=== PATIENT | female | born 1980 | race Caucasian/White ===

== ENCOUNTER → 2020-06-12 08:43 | Outpatient (CLI) | payer MEDICAID, SELFPAY ==
[2020-06-12 08:23] VITALS: BMI 36.6
--- NOTE | 2020-06-12 08:44 | RAD_ITS ---
STUDY: X-RAY - RIGHT KNEE REASON FOR EXAM: Female, 39 years old. Pain. Missed a step TECHNIQUE: 4 view(s) of the knee. COMPARISON: None. FINDINGS: Normal visualized distal femur. Normal visualized proximal tibia and fibula. Normal proximal tibiofibular articulation. There is no demonstrated fracture. There is mild degenerative arthrosis of the medial femorotibial compartment. There is mild degenerative arthrosis of the lateral femorotibial compartment. Status post anterior cruciate ligament repair. There is no demonstrated joint effusion. The soft tissue structures are unremarkable. RAD/Knee 4 or More Views IMPRESSION: Mild arthrosis and postoperative changes. No demonstrated acute osseous injury. Electronically Signed: Geovanni Cortez MD at 11:33 EDT Tel , Service support ,
--- NOTE | 2020-06-12 08:44 | RAD_ITS ---
STUDY: X-RAY - RIGHT WRIST REASON FOR EXAM: Female, 39 years old. pain. Missed a step and fell TECHNIQUE: 3 view(s) of the wrist were obtained. COMPARISON: None. FINDINGS: Normal visualized distal radius and ulna. Normal radiocarpal articulation. Normal distal radioulnar articulation. Normal carpal bones. Normal carpal articulations. Normal carpometacarpal articulation of the thumb. Normal second through fifth carpometacarpal articulations. Normal visualized metacarpal bones. The soft tissue structures are unremarkable. RAD/Wrist min 3 Views IMPRESSION: Normal x-ray examination of the wrist. Electronically Signed: Geovanni Cortez MD at 11:43 EDT Tel , Service support ,
== END ==
PROVIDERS: Visit Provider Orthopaedic Surgery
DX: M25.531 Pain in right wrist (principal); S89.90XA Unspecified injury of unspecified lower leg, initial encounter; W10.9XXA Fall (on) (from) unspecified stairs and steps, initial encounter
CPT/HCPCS: 73110; 73564

== ENCOUNTER → 2020-06-22 13:19 | Outpatient (CLI) | payer MEDICAID, SELFPAY ==
[2020-06-12 08:23] VITALS: BMI 36.6
--- NOTE | 2020-06-22 13:21 | MRI_ITS ---
STUDY: MRI RIGHT KNEE REASON FOR EXAM: Right knee pain and giving out, multiple prior surgeries. TECHNIQUE: Standardized fat and water weighted pulse sequences were obtained in all 3 orthogonal planes. COMPARISON: Radiographs 06/12/2020. FINDINGS: Normal medial meniscus. Normal hyaline cartilage of the medial femorotibial compartment. There are marginal osteophytes of the medial femorotibial compartment. Normal medial femoral condyle and tibial plateau. Normal medial collateral ligamentous complex (MCL). Normal distal semimembranosus, gracilis and semitendinosus tendons. There is a small vertical tear of the anterior horn of the lateral meniscus (proton-density sagittal images 12-14). Normal hyaline cartilage of the lateral femorotibial compartment. There are marginal osteophytes of the lateral femorotibial compartment. Normal lateral femoral condyle and tibial plateau. Normal proximal tibiofibular articulation. Normal lateral collateral (fibular) ligament. Normal popliteus tendon. Normal biceps femoris tendon. The anterior cruciate ligament graft appears intact (series 7 images 10, 11). Normal posterior cruciate ligament (PCL). Normal congruent patellofemoral articulation. There are small chondral tears of the patella near the median ridge (T2 axial image 12). There is low-grade chondromalacia of the femoral trochlea (T2 sagittal images 12, 13). Normal medial and lateral patellar retinaculum. Normal visualized quadriceps tendon. Normal patellar tendon. There is postoperative scarring in Hoffa''s fat pad. There is a very small joint effusion. The soft tissues are unremarkable. There are postoperative changes of the distal femur and proximal tibia from anterior cruciate ligament reconstruction. MRI/Lower Ext Joint Only (Routine) IMPRESSION: Small lateral meniscal tear. Small chondral tears of the patella and low-grade chondromalacia of the femoral trochlea. Intact anterior cruciate ligament graft. Very small joint effusion. Electronically Signed: Bruce Obrien MD at 14:35 EDT Tel , Service support ,
== END ==
PROVIDERS: Referring Provider Orthopaedic Surgery; Visit Provider Orthopaedic Surgery
DX: S89.91XA Unspecified injury of right lower leg, initial encounter (principal); M23.91 Unspecified internal derangement of right knee
CPT/HCPCS: 73721

== ENCOUNTER 2020-07-21 05:32 | Day surgery (SDC) | payer MEDICAID, SELFPAY ==
[2020-07-01 07:55] VITALS: BMI 36.6
--- NOTE | 2020-07-20 15:12 | HP.PCM_ITS ---
History and Physical Date of Admission: 07/21/20 Intake Intake Visit Reasons: Right knee Is patient in pain?: Yes Allergies clarithromycin [From Biaxin] Allergy (Verified 07/01/20 09:47) Anaphylaxis Penicillins Allergy (Verified 07/01/20 09:47) [facility] Medical History (Updated 06/12/20 @ 09:28 by Amina Ponce) Knee injury (Acute) Surgical History (Updated 06/12/20 @ 08:37 by Amina Ponce) History of back surgery (Acute) Social History (Updated 07/01/20 @ 12:[address] Juan Carlos Echavarria DO) household members: children number of children: 1 Smoking Status: Current every day smoker tobacco type: cigarettes Tobacco: How many years used: 20 alcohol intake: never frequency: 3-4 times per week do you feel safe at home: Yes HPI Right knee: Details: Parts of this documentation were recorded by a scribe, this documentation accurately reflects the service provided and the decisions made by me, Dr. Juan Carlos Echavarria DO 07/01/20 0755. MYESHA RAMEY is a 39 year old F here today for a followup on her right knee MRI. Patient states that she continues to have knee pain over her lateral and posterior knee. She states that her knee is giving out on her and she has knee instability. She states that she has knee swelling. She notes that she has catching and popping, which is painful. Patient states that she has no changes with her knee pain since her last visit. Denies numbness, tingling or other associated symptoms. Her MRI is here for review. ROS Musc Reports joint pain, Reports joint swelling, Denies numbness, Denies tingling Skin/Breast Reports system reviewed and no additional complaints, except as docu Neuro Yes system reviewed and no additional complaints, except as docu, No numbness, No tingling Ortho Exam Right Knee Skin/Wound: Yes CDI, No erythema, No ecchymosis, No swelling KNEE: Right Knee Skin/Wound: No erythema, No ecchymosis, No swelling Homans Sign: No Knee ROM: Yes ROM-Extension -20 to 0 (pain), Yes ROM-Flexion 0-140 Stability: NML: Anterior Drawer, NML: Posterior Drawer, NML: Valgus 30 (increased pain), NML: Varus 30, 2+: James (2B) KNEE: No joint effusion. TTP hamstrings, no patellar instability. Non TTP to gastroc muscle.Patient having severe posterior lateral pain with knee flexion and stressing of the lateral meniscus LCL intact Supplemental Info 06/22/2020 MRI right knee: Small anterior horn lateral meniscus tear chondral tears of patella and low grade chondromalacia of trochlea intact graft small joint effusion 06/12/2020 x-ray right knee: Bone tunnels of femur and tibia consistent with prior ACL reconstruction there is spurring of the medial and lateral joint spaces as well as moderate patellofemoral spurring no acute findings on x-ray 06/12/2020 x-ray right wrist: No acute findings Assessment & Plan Problems 1. Tear of lateral meniscus of right knee, current, unspecified tear type, subsequent encounter S83.203O 2. Primary osteoarthritis of right knee M17.11 Plan Educated the patient about the anatomy of the knee and etiology of her pain. Spoke with her about her options- injection vs arthroscopic surgery. Explained she might continue to have pain after surgery due to her arthritis. She wanted to proceed with surgery. Spoke with her about mensicus repair vs meniscectomy. Reviewed the pre-operative plans with the patient. Risks and benefits of the procedure were fully explained, including but not limited to infection, neurovascular injury, continued pain, arthritis, stiffness, need for further surgery, re-injury, DVT, PE, general risks of anesthesia, and loss of limb or life. The patient understands all the risks and does wish to proceed with written consent. Follow up for 2 week post op or sooner if pain, swelling, numbness or associated symptoms, or concerns develop. All questions answered. Patient in agreement of plan. Coding Level of Care Code Off vis,est,level 3 Diagnoses Tear of lateral meniscus of right knee, current, unspecified tear type, subsequent encounter S82.713D ??Encounter type: subsequent encounter ??Meniscus of knee: lateral ??Meniscus tear of knee type: unspecified type ??Tear current or old: current Primary osteoarthritis of right knee M17.11 ??Osteoarthritis type: primary I have re-examined the patient. There are no clinical changes since date of exam Procedure Criteria Procedure Type: Elective COVID Risk Discussion: The surgeon/proceduralist and patient have discussed in detail the risk of exposure to and/or potential harm posed by the COVID-19 virus with having a surgery/procedure at this time versus the risk of delaying the surgery/procedure. It is not possible to know either the risk of delaying the surgery or procedure or chance of getting an infection with perfect accuracy, but a joint decision was made between the patient and the surgeon/proceduralist to proceed at this time with the scheduled surgery/procedure as indicated on the consent form.
[2020-07-21 05:52] VITALS: BP 120/74; PULSE 70; RESP 16; TEMP 36.5; O2SAT 97; BMI 34.6
[2020-07-21] MEDS: Lactated Ringers 1,000 ML 100 ML IV (05:58)
[2020-07-21] MEDS: Epinephrine (1 mg/ml) 1 MG/ML VIAL (07:47)
[2020-07-21] MEDS: Bupiv/Epi 0.5% Mpf 30 ML Vial (07:47)
[2020-07-21] MEDS: morphine PF (epidural) 5 MG/10 ML Vial (08:01)
[2020-07-21] MEDS: MethylPREDNISolone Acetate 80 MG/ML Vial (08:01)
[2020-07-21] MEDS: Bupivacaine Mpf 0.5% 30 ML VIAL (08:01)
--- NOTE | 2020-07-21 08:06 | PCM.DC.ORTHO ---
Discharge Diet: No Restrictions Weight Bearing Status: Weight bearing as tolerated Keep extremity elevated above heart level: Operative Extremity Additional Instructions: Ice and elevate next 72 hours .keep dressing on clean and dry for 48 hours then may remove begin showering daily but do not submerge in tub or pool. After shower may apply Band-Aids . Encourage knee range of motion weightbearing as tolerated, use crutches until confident in knee then may discontinue. No strenuous activity. When not ambulating keep iced and elevated next 72 hours. Call with any questions or concerns. Allergies/Adverse Reactions: Allergies clarithromycin [From Biaxin] Allergy (Verified 07/21/20 05:41) Anaphylaxis Penicillins Allergy (Verified 07/21/20 05:41) Anaphylaxis sob Medications to take at Discharge escitalopram oxalate 5 mg tablet 20 mg PO DAILY 06/12/20 meloxicam 15 mg tablet 15 mg PO DAILY #30 tab 06/15/20 Oxycodone [Oxyir] 5 mg PO Q4H PRN PRN #30 tablet 07/21/20 The following prescriptions were given: Oxycodone [Oxyir] 5 mg PO Q4H PRN PRN #30 tablet PRN Reason: Pain Score 6-10/10 Transmission Status: Sent to [facility] Primary Care Physician: Care Physician,No Primary [Primary Care Provider] - Test Results: Test results from this visit will be discussed in further detail at your follow-up appointment, if applicable. Please Follow Up With: Juan Carlos Echavarria DO When: 2weeks
--- NOTE | 2020-07-21 08:07 | OP.PCM_ITS ---
Report of Operation Date of Procedure: 07/21/20 Description of Surgical Findings:: Preop diagnosis: Right knee anterior horn lateral meniscal tear history of ACL reconstruction DJD Postoperative diagnosis: Right knee anterior horn lateral meniscus posterior horn lateral meniscus tears foreign body metal debris from previous surgery grade 4 cartilage wear patellofemoral joint with large kissing lesion grade II chondromalacia medial and lateral compartments with higher grade 3 ridging of the lateral femoral condyle laxity of ACL graft Procedure: Right knee arthroscopic partial lateral meniscectomy chondroplasty removal of foreign body Anesthesia: General Estimated blood loss: 5 mL Tourniquet time: 21 minutes 300 mmHg Complications: none Indication for procedure: 39-year-old female who has had prior ACL reconstruction many years prior with a total of 3 surgeries on the right knee secondary to infection and screw removal who has had a recent injury to the knee with complaints of instability MRI evidence of small anterior horn lateral meniscus tear and DJD with an intact graft patient wished to proceed with elective arthroscopic surgery to attempt to alleviate her symptoms risk benefits alternatives reviewed including risk of bleeding infection nerve artery tissue damage need for further surgery continued pain and expected postoperative course. Procedure: The patient was met in the preoperative holding area. The operative extremity was identified by both patient and physician and family and marked. Patient was brought back to the operating room on a wheeled cart and transferred to the operating table in the supine position. Anesthesia was started. A well- padded tourniquet was placed on the operative extremity. A lower extremity leg ly was secured to the operative extremity. The contralateral extremity was well-padded and the end of the bed was flexed to 90 degrees. The patient was prepped and draped in the usual sterile fashion. A timeout was called to ensure the proper patient, procedure, and extremity were being contemplated. 0.5% Marcaine with epinephrine was injected into the planned incisional areas under the skin only. An Esmarch was used to exsanguinate the extremity and the tourniquet was inflated. An 11 blade scalpel was used to make a stab incision in the anterior lateral portal. The arthroscope was inserted into the intercondylar notch and inflow and outflow tubes were attached. Arthroscopic visualization began. The medial compartment was entered. An 18-gauge spinal needle was used to establish the placement for anterior medial portal. An 11 blade scalpel was used to make a stab incision. Blunt probe was inserted followed by a meniscal probe. The medial meniscus was found to be intact there was grade 2 fibrillation of the medial compartment throughout the ACL was found to be intact however with laxity upon probing appeared to have more functional fibers posterior. The lateral compartment was entered there is noted to be grade 2 softening and fibrillation throughout the lateral compartment with higher grade 3 ridging of the lateral femoral condyle there was a piece of metal debris present from prior surgery which was removed with a shaver the anterior horn lateral meniscus was evaluated there was fraying which was debrided with a shaver and then there was a radial tear of the posterior horn which was removed. The arthroscope was switched to the medial portal to complete the procedure. The medial and lateral gutters were inspected and were free of loose bodies. The patellofemoral joint was inspected grade 4 cartilage wear of the trochlea and patella with kissing area at about 20 degrees of flexion. There was good patellar tracking. The knee was thoroughly irrigated and drained. An intra- articular injection with 5 cc 0.5% Marcaine plain 2.5 mg of morphine and 40 mg of Depo-Medrol was injected intra-articularly. The arthroscope was removed the portals were closed with 3-0 nylon arthroscopic stitches. Followed by Xeroform 4 x 4's ABDs web roll and an Sarbjit wrap. The tourniquet was let down and the drapes were removed. All counts were correct. The patient was brought back to the PACU in stable condition.
[2020-07-21 08:27] VITALS: BP 120/74; BP 125/74; PULSE 70; RESP 16; TEMP 36.1; O2SAT 100
[2020-07-21 08:30] VITALS: BP 120/74; BP 122/74; PULSE 70; RESP 16; O2SAT 100
[2020-07-21 08:45] VITALS: BP 115/71; BP 120/74; PULSE 81; RESP 16; O2SAT 95
[2020-07-21 09:00] VITALS: BP 116/79; BP 120/74; PULSE 66; RESP 16; TEMP 36.2; O2SAT 96
[2020-07-21] MEDS: oxyCODONE 5 MG Tablet PO (09:33)
[2020-07-21 10:05] VITALS: BP 108/80; BP 120/74; PULSE 69; RESP 16; TEMP 36.6; O2SAT 97
== END 2020-07-21 10:20 | disposition home or self-care (01) ==
LOC: SDC 05:33 → AC 05:33
PROVIDERS: Anesthesiology; Referring Provider Orthopaedic Surgery; Visit Provider Orthopaedic Surgery
PROC: (CPT 29870; principal; 2020-07-21 07:10)
DX: S83.281A Other tear of lateral meniscus, current injury, right knee, initial encounter (principal); M17.11 Unilateral primary osteoarthritis, right knee; X58.XXXA Exposure to other specified factors, initial encounter; Y93.9 Activity, unspecified; Y92.9 Unspecified place or not applicable; Y99.9 Unspecified external cause status; Z11.59 Encounter for screening for other viral diseases; F41.9 Anxiety disorder, unspecified; F17.210 Nicotine dependence, cigarettes, uncomplicated; Z79.899 Other long term (current) drug therapy; Z88.0 Allergy status to penicillin
CPT/HCPCS: 01400; 29881; 87635; C9803; J7120; U0003